=== PATIENT | female | born 1990 | race Caucasian/White ===

== ENCOUNTER 2019-09-18 12:29 | Emergency (ER) | payer OTHER, SELFPAY ==
[2019-09-18 12:47] VITALS: BP 127/83; PULSE 83; RESP 16; TEMP 37.3; O2SAT 99
--- NOTE | 2019-09-18 13:01 | ED.URI ---
HPI - URI/Sore Throat General Chief Complaint: Upper Respiratory Infection Stated Complaint: possible strep Time Seen by Provider: 09/18/19 13:01 Source: patient Mode of arrival: ambulatory Limitations: no limitations History of Present Illness HPI Narrative: Kita Ramirez is a 28 yo female with no PMH who comes to express care for scratchy throat since yesterday. Can swallow, eat/drink Related Data Allergies Allergy/AdvReac Type Severity Reaction Status Date / Time No Known Allergies Allergy Verified 09/18/19 12:55 Review of Systems Review of Systems: Narrative: CONSTITUTIONAL: Denies fever, chills, sweats. EYES: Denies visual changes, redness, discharge. ENT: Denies rhinorrhea, congestion, has sore throat, no otalgia. CARDIOVASCULAR: Denies chest pain, palpitations, edema. RESPIRATORY: Denies dyspnea, wheezing, cough GASTROINTESTINAL: Denies abdominal pain, nausea, vomiting, diarrhea. GENITOURINARY: Denies dysuria, hematuria, abnormal discharge SKIN: Denies rash or itching. NEUROLOGIC: Denies numbness, or focal weakness. PSYCHIATRIC: Denies anxiety or depression. PMFSH Past Medical History Medical History Ruptured eardrum Family History Family History Other No active medical problems Social History Social History (Updated 09/18/19 @ 13:06 by Veronica Alexander CNP) Smoking packs per day: 0.5 Smoking cigarettes per day: 10.0 Smoking status: Current every day smoker Tobacco type: cigarettes Alcohol intake: current Gender identity (if verbalized by the patient): Female Comments At time of signature, I agree with nursing past medical, surgical, social and family history. There is no relevant family history pertinent to the presenting complaint. Exam Narrative: Exam Narrative: GENERAL: This is a well-nourished, well-developed patient, in no distress. HEAD: normocephalic, atraumatic. EYES: Sclera clear/white. Vision is grossly intact. EARS: External ears normal, . Hearing grossly intact. NOSE: External nose normal with nasal discharge, nares with redness, no rhinorrhea. THROAT: Mucous membranes moist, posterior pharynx erythema NECK: Neck supple, non-tender CARDIOVASCULAR: Regular rate and rhythm without murmurs, gallops, or rubs. RESPIRATORY: Clear to auscultation. Breath sounds equal bilaterally. No wheezes, rales, or rhonchi. GASTROINTESTINAL: Abdomen soft, non-tender, SKIN: warm, intact with no suspicious lesions or rash, good texture and turgor. NEURO: awake, alert, and oriented to person, place and time. There were no obvious focal neurologic abnormalities. Steady gait EXTREMITIES: Normal range of motion. BACK: Nontender without deformity Course Course Emergency Course: Strep test negative Started on Flonase and Claritin for post nasal drip Follow-up with primary care physician Vital Signs Vital signs: Vital Signs Temperature 99.2 F 09/18/19 12:47 Pulse Rate 83 09/18/19 12:47 Respiratory Rate 16 09/18/19 12:47 Blood Pressure 127/83 09/18/19 12:47 Pulse Oximetry 99 09/18/19 12:47 Temperature 99.2 F 09/18/19 12:47 Pulse Rate 83 09/18/19 12:47 Respiratory Rate 16 09/18/19 12:47 Blood Pressure 127/83 09/18/19 12:47 Pulse Oximetry 99 09/18/19 12:47 MDM - URI/Sore Throat Differential Diagnosis Differential diagnosis: Likely upper respiratory infection, otitis media, sinusitis, viral infection and other Lab Data Labs: Strep Screen Presumptive Negative *(Reference Range: Negative)* Discharge Plan Discharge Clinical Impression: Pharyngitis Qualifiers: Pharyngitis/tonsillitis etiology: unspecified etiology Qualified Code(s): J02.9 - Acute pharyngitis, unspecified Patient Disposition: Home, Self-Care Condition: Stable Instructions: Pharyngitis (ED) Additional Instructions: Use salt liu
== END 2019-09-18 13:15 | disposition home or self-care (01) ==
PROVIDERS: Emergency Provider Nurse Practitioner
DX: J02.9 Acute pharyngitis, unspecified (principal)
CPT/HCPCS: 87081; 87880; 99203; G0463

== ENCOUNTER 2021-08-29 08:25 | Emergency (ER) | payer BC, SELFPAY ==
[2021-08-29 08:36] VITALS: BP 126/86; PULSE 94; RESP 18; TEMP 36.9; O2SAT 100
--- NOTE | 2021-08-29 08:37 | ED.URI ---
HPI - URI/Sore Throat General Chief Complaint: Upper Respiratory Infection Stated Complaint: Sinus,Ear Pain Time Seen by Provider: 08/29/21 08:37 Source: patient, RN notes reviewed and old records reviewed Mode of arrival: ambulatory Limitations: no limitations History of Present Illness HPI Narrative: 30-year-old female presents to the [facility] with complaints of left ear pain and sinus congestion for over 2 weeks. Has used Sudafed, Afrin and Tylenol with minimal relief. Denies fevers, chest pain, abdominal pain. No dizziness, nausea vomiting or diarrhea. MD elicited complaint: nasal congestion, sinus pain and other (ear pain) Onset (ago): week(s) (2) Related Data Home Medications Medication Instructions Recorded Confirmed bupropion HCl 300 mg 24 hr tablet, 1 tablet PO DAILY 08/29/21 08/29/21 extended release escitalopram oxalate 10 mg tablet 1 tablet PO DAILY 08/29/21 08/29/21 levothyroxine 88 mcg tablet 1 tablet PO DAILY 08/29/21 08/29/21 (Unithroid) suvorexant 10 mg tablet (Belsomra) 1 tablet PO DAILY 08/29/21 08/29/21 Allergies Allergy/AdvReac Type Severity Reaction Status Date / Time No Known Allergies Allergy Verified 09/18/19 12:55 Review of Systems Review of Systems: All systems reviewed & are unremarkable except as noted in HPI and below Constitutional: Constitutional: Reports no additional constitutional complaints, Denies chills and Denies fever(s) Eyes: Eyes: Reports no additional eye complaints ENT: Reports as per HPI and Reports nasal congestion Comments: Decreased hearing and left ear pain Cardiovascular: Cardiovascular: Reports no additional cardiovascular complaints Respiratory: Respiratory: Reports no additional respiratory complaints Gastrointestinal: Gastrointestinal: Reports no additional gastrointestinal complaints Musculoskeletal: Musculoskeletal: Reports no additional musculoskeletal complaints Integumentary/Breasts: Skin/Breast: Reports system reviewed and no additional complaints, except as docu Neurologic: Reports system reviewed and no additional complaints, except as documented Psychiatric: Psychiatric: Reports no additional psychiatric complaints Allergic/Immunologic: Allergic/Immunologic: Reports no additional allergic/immunologic complaints [facility] Past Medical History Medical History (Updated 08/29/21 @ 08:48 by Elvia Hauser, [employer] CONTR[employer] TESTER) H/O Beckie thyroiditis Ruptured eardrum Family History Family History Other No active medical problems Social History Social History Smoking packs per day: 0.5 Smoking cigarettes per day: 10.0 Smoking status: Current every day smoker Tobacco type: cigarettes Alcohol intake: current Gender identity (if verbalized by the patient): Female Comments At the time of my signature, I reviewed and agree with the nursing past medical, surgical, social, and family history. There is no relevant family history pertinent to the patient complaint. Exam Const: General: healthy appearing, no acute distress and alert Nutritional Appearance: well nourished Orientation/consciousness: patient oriented x3 Limitations: no limitations HENMT: Head: normal to inspection Ears: external ears normal, EAC's normal and TM abnormal bulging on the left, erythematous on the left, with fluid behind the TM on the right and scarred bilateral General nose exam: Normal external nose present and Nasal discharge present clear bilateral Teeth and gingiva: dentition normal Throat: tonsils normal, uvula midline, posterior oropharynx abnormal cobblestoning and postnasal drainage Eyes: General: appearance normal, both eyes and all related structures Pupils: Equal, round and reactive pupils present Neck: Neck: normal visual inspection, no lymphadenopathy and no meningeal signs Chest: Chest palpation & inspection: normal inspection o
== END 2021-08-29 08:55 | disposition home or self-care (01) ==
PROVIDERS: Emergency Provider Nurse Practitioner; PCP Nurse Practitioner Adult Health
DX: H66.92 Otitis media, unspecified, left ear (principal); J00 Acute nasopharyngitis [common cold]; F17.210 Nicotine dependence, cigarettes, uncomplicated
CPT/HCPCS: 99213; G0463

== ENCOUNTER 2022-08-17 19:41 | Inpatient (IN) | payer BC, SELFPAY ==
[2022-08-17] VITALS (21 sets, daily range): BP systolic 113–130; BP diastolic 67–96; PULSE 68–90; O2SAT 99–100; BMI 35.1
--- NOTE | 2022-08-17 22:19 | LDADM ---
This patient, Kita Ramirez, was admitted to Labor/Delivery/Recovery 106 on 08/17/22 at 19:41. Plans for labor, pain management and were discussed with patient. Patient/family oriented to hospital policies and general routines including ID bracelet, bed and alarms, visiting hours, pain management, procedures, bathroom and other care routines, personal items, smoking policy, room service/diet and guest tray routines, security routines, and visiting hours. Patient/Family are encouraged to report perceived risks to care and to ask questions if they do not understand what they are told or what they should do. See OBIX for further documentation.
[2022-08-17] MEDS: LACTATED RINGERS 1,000 ML 999 ML IV CONT (22:42)
[2022-08-17 22:43] LABS: Basophils Absolute Auto 0.1 K/mm3 (0.0-0.1); Basophils Percent Auto 0.4 % (0.2-1.2); Eosinophils Percent Auto 0.3 % (0-4.4); Hematocrit 30.9 % (37.0-47.0); Hemoglobin 10.8 g/dL (12.0-15.0); Immature Granulocyte Absolute 0.07 K/mm3 (0.00-0.031); Immature Granulocyte Percent A 0.4 % (0-0.5); Lymphocytes Absolute Auto 1.15 K/mm3 (0.9-3.2); Lymphocytes Percent Auto 7.2 % (18.3-44.2); Mean Corpuscular Hemoglobin 33.4 pg (26-34); Mean Corpuscular Volume 95.7 fl (80-100); Neutrophils Absolute Auto 13.7 K/mm3 (1.3-6.7); Neutrophils Percent Auto 85.7 % (45.5-73.1); Platelet Count Result 187 k/mm3 (150-375); Red Blood Count 3.23 M/mm3 (4.2-5.4); Red Cell Distribution Width 12.5 % (11.5-14.5)
[2022-08-17] MEDS: fentaNYL CITRATE INJ (*CRX) 100 MCG/2 ML VIAL IV PUSH (22:49)
--- NOTE | 2022-08-17 23:06 | WPDANESEPPF ---
Anes - Initial Pre Proc Eval Procedure: LAbor epidural Date/Time: 08/17/22 23:06 Surgeon: Yee Andrews MD Pre Op Diagnosis: Abdominal pain with contractions Pre Op Diagnosis: Contractions Patient Data Age: 31 Gender: F Height: 1.68 m Weight: 98.6 kg Last Vital Signs Pulse Ox 100 08/17/22 23:03 O2 Del Method Room Air 08/17/22 22:17 Allergies Allergy/AdvReac Type Severity Reaction Status Date / Time No Known Allergies Allergy Verified 09/18/19 12:55 Home Medications Medication Instructions Recorded Confirmed Type bupropion HCl 300 mg 24 hr tablet, 1 tablet PO DAILY 08/29/21 08/17/22 History extended release cyanocobalamin (vitamin B-12) 1,000 mcg WEEKLY 08/07/22 08/17/22 History 1,000 mcg/mL injection syringe levothyroxine 150 mcg tablet 150 mcg PO DAILY 08/07/22 08/17/22 History ondansetron HCl 4 mg tablet 4 mg PO Q6H PRN Nausea And Vomiting 08/07/22 08/17/22 History sertraline 50 mg tablet 50 mg PO DAILY 08/07/22 08/17/22 History Laboratory Tests 08/17/22 22:33 WBC 16.0 H K/mm3 (4.5-10.0) RBC 3.23 L M/mm3 (4.2-5.4) Hgb 10.8 L g/dL (12.0-15.0) Hct 30.9 L % (37.0-47.0) MCV 95.7 fl (80-100) MCH 33.4 pg (26-34) MCHC 35.0 g/dl (32-36) RDW 12.5 % (11.5-14.5) Plt Count 187 k/mm3 (150-375) MPV 11.0 H fl (7.4-10.4) Immature Gran % (Auto) 0.4 % (0-0.5) Neut % (Auto) 85.7 H % (45.5-73.1) Lymph % (Auto) 7.2 L % (18.3-44.2) [place] % (Auto) 6.0 % (2.6-8.5) Eos % (Auto) 0.3 % (0-4.4) Baso % (Auto) 0.4 % (0.2-1.2) Lymph # (Auto) 1.15 K/mm3 (0.9-3.2) [place] # (Auto) 1.0 H K/mm3 (0.1-0.6) Eos # (Auto) 0.0 K/mm3 (0-0.3) Baso # (Auto) 0.1 K/mm3 (0.0-0.1) Abs Immat Gran (auto) 0.07 H K/mm3 (0.00-0.031) Absolute Neuts (auto) 13.7 H K/mm3 (1.3-6.7) Absolute Nucleated RBC 0.0 K/mm3 (0.0-0.012) Nucleated RBC % 0.0 % (0.0-0.2) RPR Pending : gestational age HCG: positive Patient hx anesthesia problems: none Family hx anesthesia problems: none Results Review: All pre-operative results and documents have been reviewed as part of the pre-operative evaluation. [facility] Past Medical History Medical History Anxiety and depression H/O Beckie thyroiditis Obesity and not yet delivered Ruptured eardrum Family History Family History Other No active medical problems Social History Social History Smoking packs per day: 0.5 Smoking cigarettes per day: 10.0 Smoking status: Former smoker Tobacco type: cigarettes Alcohol intake: current Substance use: never Lack of Transportation: No Lack of Food: Never True Current Housing: I Have Housing Concerned About Future Housing: No Difficulty Paying Gas/Electric Bills: No Difficulty Paying for Meds: No Currently Unemployed: No Education: Associate Degree Difficulty w/ Childcare or Family Care: No Gender identity (if verbalized by the patient): Female Spiritual care concerns: No Anes - Eval Final PreProcedure Day of Procedure 08/17/22 23:06 Patient weight: obese Airway: Mallampati scale class II Neurological: alert and oriented ASA classification: II Emergent: no Anesthetic plan: proceed Anesthesia type and monitoring: standard monitoring Results Review: All pre-operative results and documents have been reviewed as part of the pre-operative evaluation. Informed Consent: The patient's anesthetic plan and its attendant risks and benefits were discussed with the patient/family/POA. Questions were solicited and answers provided to the satisfaction of the patient/family/POA.
[2022-08-17] MEDS: LACTATED RINGERS 1,000 ML 125 ML IV CONT (23:20)
[2022-08-18] VITALS (82 sets, daily range): BP systolic 94–127; BP diastolic 51–104; PULSE 66–142; RESP 16; TEMP 36.6–37.2; O2SAT 97–100
[2022-08-18] MEDS: ONDANSETRON INJ 4 MG/2 ML VIAL IV PUSH (01:40)
[2022-08-18] MEDS: OXYTOCIN 30 UNITS/NS 500 ML 30 UNITS/500 ML BAG 999 UNITS IV CONT (04:30)
--- NOTE | 2022-08-18 04:45 | P.PCNOB_ITS ---
OB - Delivery Note Procedure Delivery date: 08/18/22 Procedure: Induction method: None Delivery monitor: External FHT and External Uterine Route of delivery: Laceration Description: Periurethral (Bilateral) and Perineal - 2nd Degree Delivery repair: vicryl (3-0 and 4-0) Specimen: No Quantitative Blood Loss (ml): 150 Anesthesia type: Epidural Disposition: Floor [place] Baby Date of : 08/18/22 Weeks of gestation at delivery: 39 Infant gender: Female presentation: vertex position: Right Occiput Anterior Placenta delivery description: Spontaneous Cord Vessel Description: 3 Vessels and Delayed Cord Clamping score one minute: 9 score five minutes: 10 Narrative: SROM when complete and pushing just prior to my arrival. Thin meconium noted and peds present at delivery. Cried immediately so infant placed on maternal abdomen.
--- NOTE | 2022-08-18 04:45 | WPDOBADMIT ---
Obstetrics - Admit Note Admission Note: record reviewed. No pertinent additions to the history and/or any subsequent changes in the physical findings that are not consistent with the expected course of the were found. Additions to the history and/or subsequent changes in the physical findings follow. None.
--- NOTE | 2022-08-18 04:47 | PM.OBDSVD ---
DS: Admitting Diagnosis Discharge Date 08/19/22 Admitting Diagnosis Active labor at 39 wks DS: Discharge Diagnosis Discharge Diagnosis (1) (normal spontaneous vaginal delivery): Code(s): O80 - Encounter for full-term uncomplicated delivery Status: Acute OB - DS: Summary OB Procedures : Ultrasound OB Procedures Intrapartum: Spontaneous Vag Delivery OB Procedures: : None Peripartum Data Infant Delivery Method: Natural Vaginal Laceration Description: Periurethral (Bilateral) and Perineal - 2nd Degree complications: none Status at Discharge Functional status at discharge: independent ambulation Overall status at discharge: patient is progressing back to baseline Time Spent with Patient Time attestation: Total time spent providing and/or coordinating discharge services: DS: Data Data Completed and Pending Labs on day of discharge: Labs from last 24 hours 08/17/22 22:33 WBC 16.0 H RBC 3.23 L Hgb 10.8 L Hct 30.9 L MCV 95.7 MCH 33.4 MCHC 35.0 RDW 12.5 Plt Count 187 MPV 11.0 H Immature Gran % (Auto) 0.4 Neut % (Auto) 85.7 H Lymph % (Auto) 7.2 L [place] % (Auto) 6.0 Eos % (Auto) 0.3 Baso % (Auto) 0.4 Lymph # (Auto) 1.15 [place] # (Auto) 1.0 H Eos # (Auto) 0.0 Baso # (Auto) 0.1 Abs Immat Gran (auto) 0.07 H Absolute Neuts (auto) 13.7 H Absolute Nucleated RBC 0.0 Nucleated RBC % 0.0 RPR Pending Blood Type A Negative Antibody Screen Negative Discharge Plan Discharge Attending physician on discharge: Yee Andrews Discharging Clinician: Osmany Owens Anticipated Discharge Date/Time: 08/19/22 11:48 Patient Disposition: Home, Self-Care Activity: may shower and pelvic rest Diet: regular Discharge Instructions: Education: Mom and Baby Guide Given to: Mother Follow-Up: Call your delivering provider's office for an appointment to be seen in: 6 Weeks Mom and baby should come to the [facility] for the follow-up appointment. Appointment Date/Time: August 21, 2022 at 8:00 am What to expect at your follow-up visit: Blood Pressure Check Physical Assessment Call [phone] if you are unable to keep your appointment time. BREAST CARE: * Wear a snug supportive bra. * For engorgement discomfort: Breast Feeding: * Apply warm moist washcloths * Express milk as needed to relieve engorgement * Wear loose clothing * For sore nipples: * Identify correct latch-on * Apply warm moist washcloths before and after nursing * Air dry nipples after nursing * May apply Lansinoh cream to nipples EPISIOTOMY/PERINEAL CARE: * Until bleeding stops, use your valentino bottle after urinating * Change your pad frequently throughout the day * You may take sitz baths several times a day (fill your bathtub with warm water and soak for 20 minutes.) Do NOT bathe in the water * No tub baths until seen by your physician - You may shower ACTIVITY: * Rest as much as possible. * Do not exercise or lift anything heavier than your baby (such as laundry or other children.) * Avoid stairs or driving as much as possible. * Do not put anything into the vagina. No douching, tampons, or sexual activity until seen by physician. NOTIFY PHYSICIAN IF YOU HAVE ANY QUESTIONS OR IF ANY OF THE FOLLOWING SYMPTOMS OCCUR: * If your vaginal area becomes red, swollen, or more painful than what you have experienced in the hospital. * If your vaginal bleeding becomes foul smelling. * If your vaginal bleeding becomes more heavy than a period or if your bleeding changes from pink to bright red. However, you may pass an occasional walnut-sized clot once or twice for the first week . * If you experience a sharp, shooting pain in your calves. * If you discover a hard, reddened area on your breast or if you experience flu-like symptoms. DIET: * Eat regular
[2022-08-18] MEDS: OXYTOCIN 30 UNITS/NS 500 ML 30 UNITS/500 ML BAG 125 UNITS IV CONT (05:03)
--- NOTE | 2022-08-18 07:10 | PC.NURSE ---
Patient transferred to post room #281 via wheel chair. Support person present. Oriented to unit, room, information board, rooming in, admission packet and security measures. Patient verbalizes understanding.
[2022-08-18] MEDS: IBUPROFEN 600 MG TABLET PO ×2 (08:20→16:55)
[2022-08-18] MEDS: SERTRALINE HCL 50 MG TABLET PO (08:21)
[2022-08-18] MEDS: LEVOTHYROXINE SODIUM 150 MCG TABLET PO (08:21)
[2022-08-18] MEDS: DOCUSATE SODIUM 100 MG CAPSULE PO (08:21)
[2022-08-18] MEDS: MULTIVIT/MIN/PREN/FOL AC/IRON TABLET 1 TAB PO (08:21)
[2022-08-18] MEDS: buPROPion HCL XL (24 HR) 150 MG TABCR 300 MG PO (08:22)
[2022-08-18 09:00] LABS: Rapid Plasma Reagin Non-Reactive (NonReactive)
[2022-08-19 05:43] LABS: Hematocrit 28.2 % (37.0-47.0); Hemoglobin 9.2 g/dL (12.0-15.0)
--- NOTE | 2022-08-19 10:45 | PM.OBDSVD ---
DS: Admitting Diagnosis Discharge Date 08/19/2022 Admitting Diagnosis DS: Discharge Diagnosis Discharge Diagnosis (1) , delivered: Code(s): O80 - Encounter for full-term uncomplicated delivery Status: Acute OB - DS: Summary OB Procedures : None OB Procedures Intrapartum: Spontaneous Vag Delivery OB Procedures: : None Time Spent with Patient Time attestation: Total time spent providing and/or coordinating discharge services: DS: Data Data Completed and Pending Labs on day of discharge: Labs from last 24 hours 08/19/22 04:24 Hgb 9.2 L Hct 28.2 L Discharge Plan Discharge Attending physician on discharge: Yee Andrews Discharging Clinician: Osmany Owens Anticipated Discharge Date/Time: 08/19/22 11:48 Patient Disposition: Home, Self-Care Activity: may shower and pelvic rest Diet: regular Patient Instructions: Antibiotic Form Stand Alone Forms: General Discharge Information Follow-up/Referrals: Yee Andrews MD [Physician] - 6 Weeks Discharge Medications: New ibuprofen 600 mg Tablet 600 mg PO Q6H PRN (Reason: Cramping) Qty: 30 0RF Continued bupropion HCl 300 mg tablet extended release 24 hr 1 tablet PO DAILY levothyroxine 150 mcg Tablet 150 mcg PO DAILY ondansetron HCl [Zofran] 4 mg Tablet 4 mg PO Q6H PRN (Reason: Nausea And Vomiting) sertraline 50 mg Tablet 50 mg PO DAILY cyanocobalamin (vitamin B-12) 1,000 mcg/mL Syringe 1,000 mcg WEEKLY Date of admission: 08/17/22 19:41 Primary Care Provider: Kimberly Odonnell Admitting Provider: Yee Andrews Attending physician on admission: Yee Andrews Condition: Stable
[2022-08-19 11:07] VITALS: BP 124/65; PULSE 72; RESP 14; TEMP 36.9; O2SAT 100
--- NOTE | 2022-08-19 14:32 | PC.NURSE ---
1300Patient viewed the discharge video Mother & Baby Care, The First Two Weeks . Patient was given the opportunity and encouraged to ask questions. Patient verbalized understanding of information shared and has been given the mother/baby guide for home reference.
[2022-08-21 08:23] VITALS: BP 110/47; PULSE 68; RESP 20; TEMP 36.6; O2SAT 100
== END 2022-08-19 13:40 | disposition home or self-care (01) | DRG 807 ==
LOC: ANHLDR 08-18 04:49 → ANHOB2 08-19 10:46 → ANHLDR 08-22 13:56 → ANHOB2 08-22 13:56
PROVIDERS: Admitting Provider Obstetrics & Gynecology Gynecology; PCP Nurse Practitioner Adult Health; Visit Provider Obstetrics & Gynecology
DX: O77.0 Labor and delivery complicated by meconium in amniotic fluid (principal); Z37.0 Single live birth; O70.1 Second degree perineal laceration during delivery; Z3A.39 39 weeks gestation of pregnancy
CPT/HCPCS: 36415; 85014; 85018; 85025; 86592; 86850; 86900; 86901; A9270; J2405; J2590; J2795; J3010; J7120

== ENCOUNTER 2023-01-29 12:07 | Emergency (ER) | payer BC, SELFPAY ==
--- NOTE | ~2023-01-29 | XR_ITS ---
EXAMINATION: XR foot RT 2V INDICATION: Right foot pain, initial encounter TECHNIQUE: Four views of the right foot are obtained. COMPARISON: None available FINDINGS: There is an acute, traumatic, closed, oblique, intra-articular fracture at the lateral base of the fifth metatarsal. Soft tissue swelling is seen near the fracture. No additional fracture is i dentified. The joint spaces are unremarkable. IMPRESSION: 1. Acute fracture at the lateral base of the fifth metatarsal. Reviewed, dictated and finalized at location B. RIPSAW OPERATOR
--- NOTE | ~2023-01-29 | XR_ITS ---
EXAMINATION: XR ankle RT 2V INDICATION: Right ankle pain TECHNIQUE: Four views of the right ankle are obtained. COMPARISON: None available FINDINGS: There is an acute fracture at the lateral base of the fifth metatarsal, described on foot r adiographs. There is no acute fracture of the ankle. Ankle alignment is normal. Ankle soft tissues ar e unremarkable. IMPRESSION: 1. No acute osseous abnormality of ankle. 2. Fracture of the lateral base of the fifth metatarsal. Reviewed, dictated and finalized at location B. EDGE ROUNDER
[2023-01-29 12:47] VITALS: BP 117/86; PULSE 89; RESP 15; TEMP 36.5; O2SAT 99
[2023-01-29] MEDS: HYDROcodone/acetaminophen (*CRX) 5-325 MG TABLET 1 TAB PO (15:36)
--- NOTE | 2023-01-30 10:54 | ED.LOWEXIN ---
HPI - Extremity Injury (Lower) General Chief Complaint: Extremity Injury, Lower Stated Complaint: rigth foot injury Time Seen by Provider: 01/29/23 14:58 Source: patient Limitations: no limitations History of Present Illness HPI Narrative: This is a 32 year old female who presents with pain across the lateral aspect of her R foot. She accidentally hit her foot on the assessment services manager last night. It has continued to cause pain making it difficult for her to walk. History of a dislocated 5th digit (toe) in this extremity before, non-operative. She has not yet taken anything for pain yesterday or today. No paresthesisas. Related Data Home Medications Medication Instructions Recorded Confirmed bupropion HCl 300 mg 24 hr tablet, 1 tablet PO DAILY 08/29/21 08/17/22 extended release cyanocobalamin (vitamin B-12) 1,000 mcg WEEKLY 08/07/22 08/17/22 1,000 mcg/mL injection syringe levothyroxine 150 mcg tablet 150 mcg PO DAILY 08/07/22 08/17/22 ondansetron HCl 4 mg tablet 4 mg PO Q6H PRN Nausea And Vomiting 08/07/22 08/17/22 sertraline 50 mg tablet 50 mg PO DAILY 08/07/22 08/17/22 Allergies Allergy/AdvReac Type Severity Reaction Status Date / Time No Known Allergies Allergy Verified 01/29/23 12:07 [facility] Past Medical History Medical History (Updated 01/30/23 @ 11:05 by Bree Tang MD) Anxiety and depression Dislocation of phalanx of right foot H/O Beckie thyroiditis Obesity and not yet delivered Ruptured eardrum Family History Family History Other No active medical problems Social History Social History Smoking packs per day: 0.5 Smoking cigarettes per day: 10.0 Smoking status: Former smoker Tobacco type: cigarettes Alcohol intake: current Substance use: never Lack of Transportation: No Lack of Food: Never True Current Housing: I Have Housing Concerned About Future Housing: No Difficulty Paying Gas/Electric Bills: No Difficulty Paying for Meds: No Currently Unemployed: No Education: Associate Degree Difficulty w/ Childcare or Family Care: No Gender identity (if verbalized by the patient): Female Spiritual care concerns: No Exam Const: General: healthy appearing, no acute distress and alert; No confusion, diaphoretic or ill appearing Nutritional Appearance: well nourished Orientation/consciousness: patient oriented x3 Limitations: no limitations HENMT: Head: normal to inspection Other: gross auditory acuity intact Neck: Neck: normal visual inspection Resp: Effort & Inspection: normal respiratory effort, not labored, no retractions, not tachypneic and no use of accessory muscles Cardio: Rate: regular rate, not bradycardic and not tachycardic Other: Palpable R foot DP pulse; b/l lower extremities cool but symmetrically so and otherwise well-perfusing Skin: Other: ecchymosis across lateral aspect of right foot and lateral dorsum of mid foot. No skin openings. Neuro: General: patient oriented x3 and moves all extremities Other: sensation intact to gross tough throughout foot Extrem: General: no pedal edema Other: COmpartments of foot soft. Psych: Mental Status: mental status grossly normal Affect: normal affect, No Sad affect present and No Anxious affect present Attitude: cooperative Course Vital Signs Vital signs: Vital Signs Temperature 97.7 F 01/29/23 12:47 Pulse Rate 89 01/29/23 12:47 Respiratory Rate 15 01/29/23 12:47 Blood Pressure 117/86 01/29/23 12:47 Pulse Oximetry 99 01/29/23 12:47 Oxygen Delivery Room Air 01/29/23 12:47 Temperature 97.7 F 01/29/23 12:47 Pulse Rate 89 01/29/23 12:47 Respiratory Rate 15 01/29/23 12:47 Blood Pressure 117/86 01/29/23 12:47 Pulse Oximetry 99 01/29/23 12:47 Oxygen Delivery Room Air 01/29/23 12:47 WNL MDM - E
== END 2023-01-29 15:48 | disposition home or self-care (01) ==
LOC: ANHED 15:40
PROVIDERS: Emergency Provider Student in an Organized Health Care Education/Training Program
DX: S92.351A Displaced fracture of fifth metatarsal bone, right foot, initial encounter for closed fracture (principal); E06.3 Autoimmune thyroiditis; E66.9 Obesity, unspecified; Z68.33 Body mass index [BMI] 33.0-33.9, adult; F41.9 Anxiety disorder, unspecified; F32.A Depression, unspecified; Z87.891 Personal history of nicotine dependence; W22.8XXA Striking against or struck by other objects, initial encounter
CPT/HCPCS: 73600; 73620; 99284; A9270